=== PATIENT | female | born 1965 | race Caucasian/White ===

== ENCOUNTER → 2022-01-15 | Outpatient (CLI) | payer MEDICAID, SELFPAY ==
--- NOTE | 2022-01-15 13:02 | BI_ITS ---
MAMMOGRAPHY - BILATERAL SCREENING REASON FOR EXAM: Female, 56 years old. Routine annual screening examination. PERTINENT HISTORY: Non-contributory. TECHNIQUE: Digital bilateral breast valerio (3D mammographic acquisition) in the CC and MLO projections. 2-D mediolateral oblique (MLO) and craniocaudad (CC) views of both breasts were obtained. CAD: Full Field Digital Mammography with Computer Added Detection was performed. COMPARISON: None. Baseline examination. FINDINGS: Breast Composition: The breasts are almost entirely fatty. There are no dominant masses or suspicious calcifications. No other significant abnormalities are identified. BI/SCRN MAMM (CAD)W/VALERIO BILAT IMPRESSION: Negative screening mammogram. Yearly followup mammogram recommended. (A) ASSESSMENT CATEGORY: BIRADS Category 1: Negative. A letter regarding these results will be sent to the patient by the facility within 30 days. Approximately 10% of breast cancers are not detected by mammography. A normal mammogram should not delay biopsy of a clinically suspicious abnormality. [id number] Electronically Signed: Lux Henley MD at 13:53 EDT ,
== END | disposition home or self-care (01) ==
LOC: OPBI 13:01
PROVIDERS: PCP Internal Medicine; Visit Provider Internal Medicine
DX: Z12.31 Encounter for screening mammogram for malignant neoplasm of breast (principal)
CPT/HCPCS: 77063; 77067

== ENCOUNTER → 2022-06-24 | Outpatient (CLI) | payer MEDICAID, SELFPAY ==
[2022-06-24 12:04] LABS: Absolute Lymphocyte Count 2.45 X10^3/uL (0.83-4.51); Absolute Neutrophil Count 2.5 X10^3/uL (2.0-7.7); Basophil# 0.05 X10^3/uL; Basophil% 0.9 % (0-1); Eosinophils% 5.1 % (0-5); Hematocrit 44.9 % (37-47); Hemoglobin 14.3 g/dL (12.0-15.0); Lymphocyte # 2.45 X10^3/ul (0.83-4.51); Lymphocyte % 41.8 % (19-41); Mean Corp Hgb Conc 31.8 g/dL (32-36); Mean Corpuscular Hgb 29.3 pg (27.0-32.0); Mean Platelet Vol. 11.8 fl (6.2-12.0); Monocyte# 0.55 X10^3/uL; Monocyte% 9.4 % (0-10); NRBC Flagged by Analyzer 0 % (0-5); Neutrophil % 42.6 % (47-70); Platelet Count 229 K/mm3 (150-450); RBC Distribution Width CV 13.4 % (11.6-14.6); RBC Distribution Width SD 45.6 fl (35.1-43.9); Red Blood Count 4.88 M/mm3 (4.2-5.4); White Blood Count 5.9 K/mm3 (4.4-11.0)
[2022-06-24 12:27] LABS: AST(SGOT) 20 U/L (15-37); Alanine Aminotransfer ALT/SGPT 33 U/L (13-56); Albumin, Serum 3.9 g/dL (3.2-5.0); Alkaline Phosphatase 52 U/L (45-117); Anion Gap 6 (5-15); BUN 16 mg/dL (7-18); BUN/Creat Ratio 17.5 RATIO (10-20); Calcium,Total 9.7 mg/dL (8.5-10.1); Chloride 100 mmol/L (98-107); Cholesterol 188 mg/dL (200); Creatinine, Serum 0.91 mg/dL (0.55-1.02); EST Glomerular Filtration Rate 67 mL/min (>60); Est Glom Filt Rate - Afr Amer 82 mL/min (>60); Globulin 4.1 g/dL (2.2-4.2); Glucose 100 mg/dL (74-106); High Density Lipoprotein 64 mg/dL; Potassium 3.7 mmol/L (3.5-5.1); Sodium Level 138 mmol/L (136-145); Triglycerides 123 mg/dL; Very Low Density Lipoprotein 25 mg/dL (5-40)
== END | disposition home or self-care (01) ==
LOC: BIMLAB 08:24
PROVIDERS: PCP Internal Medicine; Referring Provider Internal Medicine; Visit Provider Internal Medicine
DX: I10 Essential (primary) hypertension (principal); E78.2 Mixed hyperlipidemia
CPT/HCPCS: 36415; 80053; 80061; 85025

== ENCOUNTER → 2023-07-01 | Outpatient (CLI) | payer MEDICAID, SELFPAY ==
[2023-07-01 12:30] LABS: Absolute Lymphocyte Count 2.52 X10^3/uL (0.83-4.51); Absolute Neutrophil Count 2.8 X10^3/uL (2.0-7.7); Basophil# 0.07 X10^3/uL; Basophil% 1.1 % (0-1); Eosinophil# 0.46 X10^3/uL; Eosinophils% 7.3 % (0-5); Hematocrit 43.3 % (37-47); Lymphocyte # 2.52 X10^3/ul (0.83-4.51); Lymphocyte % 40.1 % (19-41); Mean Corp Hgb Conc 32.3 g/dL (32-36); Mean Corpuscular Hgb 29.1 pg (27.0-32.0); Mean Platelet Vol. 12.4 fl (6.2-12.0); Monocyte# 0.42 X10^3/uL; Monocyte% 6.7 % (0-10); NRBC Flagged by Analyzer 0 % (0-5); Neutrophil # 2.81 X10^3/uL (2.7-7.7); Neutrophil % 44.6 % (47-70); Platelet Count 202 K/mm3 (150-450); Red Blood Count 4.81 M/mm3 (4.2-5.4); White Blood Count 6.3 K/mm3 (4.4-11.0)
[2023-07-01 12:57] LABS: AST(SGOT) 22 U/L (15-37); Alanine Aminotransfer ALT/SGPT 29 U/L (13-56); Albumin, Serum 3.9 g/dL (3.2-5.0); Alkaline Phosphatase 50 U/L (45-117); Anion Gap 8 (5-15); BUN 18 mg/dL (7-18); BUN/Creat Ratio 20.6 RATIO (10-20); Calcium,Total 9.3 mg/dL (8.5-10.1); Chloride 105 mmol/L (98-107); Cholesterol 194 mg/dL (200); Creatinine, Serum 0.87 mg/dL (0.55-1.02); EST Glomerular Filtration Rate 71 mL/min (>60); Est Glom Filt Rate - Afr Amer 85 mL/min (>60); Glucose 116 mg/dL (74-106); High Density Lipoprotein 51 mg/dL; Potassium 3.3 mmol/L (3.5-5.1); Protein, Total 7.9 g/dL (6.4-8.2); Sodium Level 139 mmol/L (136-145); Triglycerides 164 mg/dL; Very Low Density Lipoprotein 33 mg/dL (5-40)
== END | disposition home or self-care (01) ==
LOC: BIMLAB 08:15
PROVIDERS: PCP Internal Medicine; Referring Provider Internal Medicine; Visit Provider Internal Medicine
DX: I10 Essential (primary) hypertension (principal); E78.2 Mixed hyperlipidemia
CPT/HCPCS: 36415; 80053; 80061; 85025

== ENCOUNTER → 2023-07-29 | Outpatient (CLI) | payer MEDICAID, SELFPAY ==
--- NOTE | 2023-07-29 08:51 | BI_ITS ---
MAMMOGRAPHY - BILATERAL SCREENING REASON FOR EXAM: Female, 57 years old. Routine annual screening examination. PERTINENT HISTORY: Aunt with breast cancer. TECHNIQUE: Digital bilateral breast valerio (3D mammographic acquisition) in the CC and MLO projections. 2-D mediolateral oblique (MLO) and craniocaudad (CC) views of both breasts were obtained. CAD: Full Field Digital Mammography with Computer Added Detection was performed. COMPARISON: Comparison is made with prior study January 15, 2022. FINDINGS: Breast Composition: The breasts are almost entirely fatty. There are no dominant masses or suspicious calcifications. No other significant abnormalities are identified. There has been no significant change since the prior study. BI/SCRN MAMM (CAD)W/VALERIO BILAT IMPRESSION: Stable bilateral screening mammogram. Yearly follow-up mammogram recommended. (A) ASSESSMENT CATEGORY: BIRADS Category 1: Negative. A letter regarding these results will be sent to the patient by the facility within 30 days. Approximately 10% of breast cancers are not detected by mammography. A normal mammogram should not delay biopsy of a clinically suspicious abnormality. [id number] Electronically Signed: Lux Henley MD at 10:16 EDT ,
== END | disposition home or self-care (01) ==
LOC: OPBI 08:51
PROVIDERS: PCP Internal Medicine; Referring Provider Internal Medicine; Visit Provider Internal Medicine
DX: Z12.31 Encounter for screening mammogram for malignant neoplasm of breast (principal); Z80.3 Family history of malignant neoplasm of breast
CPT/HCPCS: 77063; 77067

== ENCOUNTER 2024-05-03 08:45 | Day surgery (SDC) | payer MEDICAID, SELFPAY ==
[2024-05-03] VITALS (8 sets, daily range): BP systolic 100–139; BP diastolic 61–72; PULSE 58–70; RESP 16; TEMP 36.2–36.9; O2SAT 95–100; BMI 27.8
--- NOTE | 2024-05-03 | COLBX_PTH ---
PATIENT: LAURENCE GREENE LOC: EN U#:[id number] AGE/SX: 58/F ROOM: RE05/03/[address]: Dr. Sim Whitten MD : 1965 BED: DIS: 05/03/2024 SPEC #: [id number] RECD: 05/03/24 13:25 STATUS: HARDIK REChristiano #: [id number] NATALI: 05/03/24 00:[address]: Sim Whitten DEPT: SURGICAL PATHOLOGY RECD BY: Ignacio Corrales ENTERED: 05/03/24 13:25 SP TYPE: COLON BX OTHR DR: Dr. Juany Rangel MD Tissues: Sigmoid colon biopsy Procedures: Surgery Specimen Level IV HEADER OPERATION: Colonoscopy with biopsy PRE-OP DIAGNOSIS: Positive colorectal cancer screening using Cologuard test TISSUE SUBMITTED: Sigmoid polyp biopsy MICROSCOPIC DIAGNOSIS Sigmoid polyp, biopsy: Fragments of hyperplastic colonic polyp. PW.mr 05/04/2024 MICROSCOPIC DESCRIPTION Slides are reviewed. GROSS DESCRIPTION Received in fixative is one container labeled with the patient's name and designated Sigmoid polyp biopsy. The specimen consists of two irregular fragments of light torres soft tissue that in aggregate measure 0.6 x 0.3 x 0.2 cm. The specimen is totally submitted in one cassette. TELLY 05/03/2024 TC:5 CPT:83637
--- NOTE | 2024-05-03 09:11 | PCM.PRE.AN2 ---
ASA Classification* ASA Classification ASA Classification: 2 Assessment & Plan Anesthesia* Anesthesia Assessment Anesthesia Assessment: Discussed sedation and/or anesthesia options, risks, benefits, and alternatives with patient/parents/legal guardian/POA. Questions invited. The patient/parents/legal guardian/POA seems to understand and agrees to proceed with anesthesia plan. Reviewed the physical assessment, medical history, allergy history and patient home medications list prior to surgery/procedure/anesthetic and documented any changes. Performed airway and anesthesia risk assessments. Anesthesia Type Anesthesia Type: MAC History Source History Obtained from:: Patient and Chart Anesthesia Focused Assessment* Temperature: 97.2 F Pulse Rate: 70 Blood Pressure: 139/63 Respiratory Rate: 16 Pulse Ox: 100 Oxygen Delivery Method: Room Air Airway Assessment Mouth opens: >3 cm Mallampati Score: III Teeth Condition: Caps/Crowns (Patient has all permanent implants on top. They are all tight.) and Missing (There are several missing teeth on the bottom. The rest are tight.) Neck Range of motion (ROM): Full ROM Focused Labs Anesthesia Preop lab: CBC WBC 6.3 K/mm3 (4.4-11.0) 07/01/23 08:16 RBC 4.81 M/mm3 (4.2-5.4) 07/01/23 08:16 Hgb 14.0 g/dL (12.0-15.0) 07/01/23 08:16 Hct 43.3 % (37-47) 07/01/23 08:16 Plt Count 202 K/mm3 (150-450) 07/01/23 08:16 CHEMISTRY Potassium 3.3 mmol/L (3.5-5.1) L 07/01/23 08:16 Sodium 139 mmol/L (136-145) 07/01/23 08:16 BUN 18 mg/dL (7-18) 07/01/23 08:16 Creatinine 0.87 mg/dL (0.55-1.02) 07/01/23 08:16 Glucose 116 mg/dL (74-106) H 07/01/23 08:16 TSH 0.66 uIU/mL (0.358-3.74) 04/27/13 14:37 COAG Pre-Assessment Diagnosis/Proposed Procedure Planned Operative Procedure(s): COLONOSCOPY Anesthesia History 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 When Was Last Pacemaker Check QUESTION #4 FULL TEXT: You/Your Family Experience fever (hyperthermia) with Anesthesia Last Oral Intake Last Oral intake: Last Oral Intake NPO since 07:00 05/03/24 09:04 Meds taken in AM with sips of Yes 05/03/24 09:04 water? Meds patient instructed to HYDROCHLOROTHIAZIDE 05/03/24 09:04 take am of surgery Any additional information?: Yes NPO since: 07:00 (Patient took her hydrochlorothiazide at 7 AM with water) PONV PONV - lance crewmember/mlrs sergeant: PONV - lance crewmember/mlrs sergeant Female Yes 04/28/24 14:20 HX of Motion Sickness Yes 04/28/24 14:20 HX of N/V After Surgery Yes 04/28/24 14:20 Non-Smoker Yes 04/28/24 14:20 Duration of Surgery greater No 04/28/24 14:20 than 60 minutes Number of Risk Factors 4 04/28/24 14:20 PONV Score Severe Risk 04/28/24 14:20 Height & Weight Height & Weight: Anesthesia: Height & Weight Height 5 ft 4 in 05/03/24 09:04 Weight: 73.6 kg 05/03/24 09:04 Body Mass Index (BMI) 27.8 05/03/24 09:04 Respiratory Assessment Respiratory Assessment - lance crewmember/mlrs sergeant: Respiratory Tract Infection Hx - lance crewmember/mlrs sergeant Hx Respiratory Tract Infection No 04/28/24 14:20 STOP Sleep Apnea STOP Sleep Apnea - lance crewmember/mlrs sergeant: STOP Sleep Apnea - lance crewmember/mlrs sergeant Hx Hypertension Yes 04/28/24 14:20 Hx Sleep Apnea No 04/28/24 14:20 CPAP No 03/02/13 17:44 BIPAP No 03/02/13 17:44 Do you snore loudly (louder No 04/28/24 14:20 than talking or can be heard Do you often feel tired/ No 04/28/24 14:20 fatigued/ sleepy during daytime? Has anyone observed you stop No 04/28/24 14:20 breathing during sleep? STOP Results Negative 04/28/24 14:20 QUESTION #5 FULL TEXT : Do you snore loudly (louder than talking or can be heard through closed doors)? Tobacco Use History Tobacco Use History - lance crewmember/mlrs sergeant: Tobacco Use History - lance crewmember/mlrs sergeant Tobacco Use Smoking Status Former smoker 04/28/24 14:20 Hx Tobacco Use Yes 04/28/24 14:20 Years Smoking Packs Smoked per Day Smoking Cessation Date was Yes - quit smoking within 15 04/28/24 14:20 within the last 15 years years Hx Smoking Cessation Date Hx Smoking Cessation No 04/28/24 14:20 Counseling Hematologic Medial History Hematologic Hx - lance crewmember/mlrs sergeant: Hematologic Medical Hx - manager environmental health Hx of Blood Transfusion No 04/28/24 14:20 Hx of Transfusion in last 3 No 04/28/24 14:20 Months Date of Last Transfusion (if within last 3 months) Ever experience any problems No 04/28/24 14:20 with transfusion(s)? Specify any problems Hx of Preganancy in last 3 No 04/28/24 14:20 Months Nurse Filling Out Transfusion [email or web address] 04/28/24 14:20 & Questions: Date: 04/28/24 04/28/24 14:20 Time: 14:25 04/28/24 14:20 Patient unable to answer at this time (ie. confused, unrespo /Reproduction History /Reproductive History - lance crewmember/mlrs sergeant: /Reproductive Hx- lance crewmember/mlrs sergeant Hx Now Gestational Age (in weeks): EDC: Hx Hx Para [facility] Medical History Wears glasses Migraine headache Gastric reflux Former smoker Positive colorectal cancer screening using Cologuard test Trigger finger High cholesterol Hypertension Headache, migraine GI problem Chronic bronchitis Carpal tunnel syndrome Back problem Arthritis Diverticulitis large intestine COPD with asthma Home Medications ?Medication ?Instructions ?Recorded ?Last Taken ?Type antiarthritic combination no.2 900 1,800 mg PO DAILY 12/05/21 Unknown History mg tablet (glucosamine-chondroitin) loratadine 10 mg tablet 10 mg PO DAILY 12/05/21 Unknown History omega 3-ydb-hab-fish oil 60 mg-90 3 cap PO DAILY 12/05/21 Unknown History mg-500 mg capsule (Fish Oil) omeprazole 20 mg capsule,delayed 20 mg PO DAILY 12/05/21 Unknown History release tumeric curcumin 1 tab PO DAILY 12/05/21 Unknown History diclofenac sodium 50 mg 50 mg PO BID #180 tabs 03/02/24 Unknown Rx tablet,delayed release hydrochlorothiazide 25 mg tablet 25 mg PO DAILY #90 tabs 03/02/24 05/03/24 07:00 Rx simvastatin 20 mg tablet 20 mg PO DAILY #90 tabs 03/02/24 Unknown Rx Allergy/AdvReac Type Severity Reaction Status Date / Time ciprofloxacin Allergy Severe Hives Verified 05/03/24 09:02 oxycodone (From Percocet) Allergy Severe Nausea Verified 05/03/24 09:02 sulfamethoxazole (From Allergy Severe Hives Verified 05/03/24 09:02 Bactrim) trimethoprim (From Bactrim) Allergy Severe Hives Verified 05/03/24 09:02 ibuprofen Allergy Rash Verified 05/03/24 09:02 tetracycline (Tetracycline) Allergy Hives Verified 05/03/24 09:02 hydrocodone bitartrate (From AdvReac Upset Verified 05/03/24 09:02 Vicodin) Stomach Family History Father Cancer sinus cavity Hypertension Mother Diabetes Grandmother Diabetes Grandfather Diabetes Hypertension Brother Diabetes Surgical History S/P trigger finger release History of carpal tunnel release History of back surgery History of foot surgery Social History household members: spouse current occupational status: employed 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
--- NOTE | 2024-05-03 10:14 | HP.PCM_ITS ---
HPI - General General Date of Admission: 05/03/24 Date of Service: 05/03/24 Chief Complaint: Screening colonoscopy HPI Narrative LAURENCE GREENE, is a 58 F who presents today for colonoscopy. She states that her last colonoscopy was about 10 years ago. She recently had a positive Cologuard test. She denies any blood in her stools. No GI symptoms or problems otherwise. [facility] Medical History Wears glasses Migraine headache Gastric reflux Former smoker Positive colorectal cancer screening using Cologuard test Trigger finger High cholesterol Hypertension Headache, migraine GI problem Chronic bronchitis Carpal tunnel syndrome Back problem Arthritis Diverticulitis large intestine COPD with asthma Home Medications ?Medication ?Instructions ?Recorded ?Last Taken ?Type antiarthritic combination no.2 900 1,800 mg PO DAILY 12/05/21 Unknown History mg tablet (glucosamine-chondroitin) loratadine 10 mg tablet 10 mg PO DAILY 12/05/21 Unknown History omega 8-ryy-obz-fish oil 60 mg-90 3 cap PO DAILY 12/05/21 Unknown History mg-500 mg capsule (Fish Oil) omeprazole 20 mg capsule,delayed 20 mg PO DAILY 12/05/21 Unknown History release tumeric curcumin 1 tab PO DAILY 12/05/21 Unknown History diclofenac sodium 50 mg 50 mg PO BID #180 tabs 03/02/24 Unknown Rx tablet,delayed release hydrochlorothiazide 25 mg tablet 25 mg PO DAILY #90 tabs 03/02/24 05/03/24 07:00 Rx simvastatin 20 mg tablet 20 mg PO DAILY #90 tabs 03/02/24 Unknown Rx Allergy/AdvReac Type Severity Reaction Status Date / Time ciprofloxacin Allergy Severe Hives Verified 05/03/24 09:02 oxycodone (From Percocet) Allergy Severe Nausea Verified 05/03/24 09:02 sulfamethoxazole (From Allergy Severe Hives Verified 05/03/24 09:02 Bactrim) trimethoprim (From Bactrim) Allergy Severe Hives Verified 05/03/24 09:02 ibuprofen Allergy Rash Verified 05/03/24 09:02 tetracycline (Tetracycline) Allergy Hives Verified 05/03/24 09:02 hydrocodone bitartrate (From AdvReac Upset Verified 05/03/24 09:02 Vicodin) Stomach Family History Father Cancer sinus cavity Hypertension Mother Diabetes Grandmother Diabetes Grandfather Diabetes Hypertension Brother Diabetes Surgical History S/P trigger finger release History of carpal tunnel release History of back surgery History of foot surgery Social History household members: spouse current occupational status: employed current occupation: [employer] Smoking Status: Former smoker quit date: 12/12/16 pack-years: 59 Electronic Cigarette Use: not used alcohol intake: never substance use type: does not use what type of physical activity do you participate in: none do you feel safe at home: Yes ROS Constitutional Constitutional: Reports systems reviewed and no addt'l complaints, except as documented Eyes Eyes: Reports systems reviewed and no addt'l complaints, except as documented ENT HEENT: Reports systems reviewed and no addt'l complaints, except as documented Cardiovascular Cardiovascular: Reports systems reviewed and no addt'l complaints, except as documented Respiratory/Chest Respiratory/Chest: Reports systems reviewed and no addt'l complaints, except as documented Gastrointestinal Gastrointestinal: Reports systems reviewed and no addt'l complaints, except as documented Vital Signs Vital Signs Vital Signs: 05/03/24 09:04 05/03/24 09:04 05/03/24 09:19 Temperature 97.2 F L 97.2 F L Temperature Source Temporal Pulse Rate 70 70 Respiratory Rate 16 16 Respiratory Pattern Normal Blood Pressure 139/63 H 139/63 H Blood Pressure Mean 88 Blood Pressure Source Monitor Blood Pressure Position Sitting Blood Pressure Location Left Arm Pulse Ox 100 100 Oxygen Delivery Method Room Air Room Air Weight Weight: 162 lb 4.163 oz Body Mass Index (BMI) 27.8 Physical Exam Const alert, oriented x3, no apparent distress and average body habitus Assessment & Plan Assessment/Plan (1) Positive colorectal cancer screening using Cologuard test: PLAN: The patient is a 58-year-old female who recently had a positive Cologuard test. Her last colonoscopy was about 10 years ago. She denies any GI symptoms or problems. Plan is for her to proceed with colonoscopy. This will begin momentarily. We did discuss the risks benefits and alternatives. And she wished to proceed. Charges/Coding Visit Charges Inpatient E&M: 10234 Init Hosp L1
--- NOTE | 2024-05-03 10:55 | OP.CCLET_ITS ---
05/03/2024 Juany Rangel Md Re : Colonoscopy procedure for Winnie Trivedi Dear Claire This procedure was performed on Friday, May 03, 2024. My impressions and recommendations are as follows: Impressions : - Diverticulosis in the sigmoid colon. - One 2 mm polyp in the sigmoid colon, removed with a cold biopsy forceps. Resected and retrieved. - Internal hemorrhoids. - The examination was otherwise normal on direct and retroflexion views. Recommendations : - Discharge patient to home (ambulatory). - High fiber diet indefinitely. - Await pathology results. - Repeat colonoscopy in 5-10 years for surveillance based on pathology results. - Return to my office PRN. - Continue present medications. My findings are described in the full procedure note, which is enclosed. If I can be of further assistance, please feel free to contact me at . Sincerely, Sim Whitten MD 05/03/2024 10:54:21 AM This report has been signed electronically.
--- NOTE | 2024-05-03 10:55 | OP.COLON_ITS ---
Patient Name: Winnie Trivedi Procedure Date: 05/03/2024 10:15 AM Date of : 1965 Age: 58 Procedure: Colonoscopy Indications: Positive Cologuard test Providers: Sim Whitten MD Referring MD: Juany Rangel Md Medicines: Monitored Anesthesia Care Patient Profile: Refer to note in patient chart for documentation of history and physical. Last Colonoscopy: 10 years ago. Complications: No immediate complications. Estimated blood loss: Minimal. Procedure: Pre-Anesthesia Assessment: - Prior to the procedure, a History and Physical was performed, and patient medications and allergies were reviewed. The patient's tolerance of previous anesthesia was also reviewed. The risks and benefits of the procedure and the sedation options and risks were discussed with the patient. All questions were answered, and informed consent was obtained. Prior Anticoagulants: The patient has taken no anticoagulant or antiplatelet agents. ASA Grade Assessment: II - A patient with mild systemic disease. After reviewing the risks and benefits, the patient was deemed in satisfactory condition to undergo the procedure. After I obtained informed consent, the scope was passed under direct vision. Throughout the procedure, the patient's blood pressure, pulse, and oxygen saturations were monitored continuously. The colonoscope was introduced through the anus and advanced to the cecum, identified by appendiceal orifice and ileocecal valve. The ileocecal valve, appendiceal orifice, and rectum were photographed. The entire colon was well visualized. The colonoscopy was performed without difficulty. The patient tolerated the procedure well. The quality of the bowel preparation was adequate. Moderate Sedation: See the other procedure note for documentation of moderate sedation with intraservice time. Scope In: 10:27:12 AM Scope Withdrawal Time 0 hours 11 minutes 58 seconds Scope Out: 10:45:49 AM Total Procedure Duration Time 0 hours 18 minutes 37 seconds Findings: The perianal and digital rectal examinations were normal. A few small-mouthed diverticula were found in the sigmoid colon. A 2 mm polyp was found in the sigmoid colon. The polyp was hyperplastic. The polyp was removed with a cold biopsy forceps. Resection and retrieval were complete. Verification of patient identification for the specimen was done by the nurse. Estimated blood loss was minimal. Internal hemorrhoids were found during retroflexion. The hemorrhoids were large. The exam was otherwise without abnormality on direct and retroflexion views. Impression: - Diverticulosis in the sigmoid colon. - One 2 mm polyp in the sigmoid colon, removed with a cold biopsy forceps. Resected and retrieved. - Internal hemorrhoids. - The examination was otherwise normal on direct and retroflexion views. Recommendation: - Discharge patient to home (ambulatory). - High fiber diet indefinitely. - Await pathology results. - Repeat colonoscopy in 5-10 years for surveillance based on pathology results. - Return to my office PRN. - Continue present medications. Procedure Code(s): --- Professional --- 69059, Colonoscopy, flexible; with biopsy, single or multiple Diagnosis Code(s): --- Professional --- K64.8, Other hemorrhoids D12.5, Benign neoplasm of sigmoid colon K57.30, Diverticulosis of large intestine without perforation or abscess without bleeding R19.5, Other fecal abnormalities CPT copyright 2021 [employer]. All rights reserved. The codes documented in this report are preliminary and upon tooling specialist review may be revised to meet current compliance requirements. Sim Whitten MD 05/03/2024 10:54:21 AM This report has been signed electronically. Number of Addenda: 0 Note Initiated On: 05/03/2024 10:15 AM
--- NOTE | 2024-05-03 10:58 | PCM.POST.ANE ---
Anesthesia: Postop Eval I Current Vital Signs Temperature: 97.3 F Pulse Rate: 60 Blood Pressure: 101/65 Respiratory Rate: 16 Pulse Ox: 98 Oxygen Delivery Method: Room Air Assessment Airway patent: Yes Spontaneous unlabored respirations: Yes Mental status: Asleep nausea: No Vomiting: No Anesthesia Complication: No Fluid Hydration Crystalloid volume administer (ml): 50 Total IV fluid infused: 50 Progress Note Anesthesia document: Postop Eval 1 completed: Yes
--- NOTE | 2024-05-03 20:16 | PCM.POSTANE2 ---
Anesthesia Postop Eval I Sum Postop Eval Completion status Anesthesia document: Postop Eval 1 completed: Yes Anesthesia Postop Eval I Summary Anesthesia Postop Eval I Summary: Anesthesia Postop Eval I: Assessment Summary Airway patent Yes 05/03/24 10:59 [email or web address] Spontaneous unlabored Yes 05/03/24 10:59 [email or web address] respirations Mental status Asleep 05/03/24 10:59 [email or web address] nausea No 05/03/24 10:59 [email or web address] Vomiting No 05/03/24 10:59 [email or web address] Anesthesia Postop Eval I: Fluid Summary Crystalloid volume administer 50 05/03/24 10:59 [email or web address] (ml) Colloids volume administered ( ml) Blood Product volume administered (ml) Total IV fluid infused 50 05/03/24 10:59 [email or web address] Anesthesia Postop Eval I: Summary Notes Anesthesia Complication No 05/03/24 10:59 [email or web address] Anesthesia Complication Comment: Post-operative progress note Anesthesia: Postop Eval II Evaluation Mental status: Awake and Calm Pain Level: 0 nausea: No Vomiting: No Complications Anesthesia Complication: No
== END 2024-05-03 11:24 | disposition home or self-care (01) ==
LOC: EN 08:46 → AC 08:47
PROVIDERS: PCP Internal Medicine; Referring Provider Surgery; Visit Provider Surgery
PROC: 0DJD8ZZ Inspection of Lower Intestinal Tract, Via Natural or Artificial Opening Endoscopic (ICD-10-PCS; CPT 45378; principal; 2024-05-03 09:55)
DX: Z12.11 Encounter for screening for malignant neoplasm of colon (principal); J44.9 Chronic obstructive pulmonary disease, unspecified; K64.8 Other hemorrhoids; D12.5 Benign neoplasm of sigmoid colon; I10 Essential (primary) hypertension; E78.00 Pure hypercholesterolemia, unspecified; K57.30 Diverticulosis of large intestine without perforation or abscess without bleeding; K21.9 Gastro-esophageal reflux disease without esophagitis; Z87.891 Personal history of nicotine dependence; R19.5 Other fecal abnormalities
CPT/HCPCS: 45380; 88305; A4216; J2405

== ENCOUNTER → 2024-09-28 | Outpatient (CLI) | payer MEDICAID, SELFPAY ==
[2024-09-28 12:37] LABS: Absolute Lymphocyte Count 2.59 X10^3/uL (0.83-4.51); Absolute Neutrophil Count 2.9 X10^3/uL (2.0-7.7); Basophil# 0.05 X10^3/uL; Basophil% 0.8 % (0-1); Eosinophil# 0.54 X10^3/uL; Eosinophils% 8.3 % (0-5); Hematocrit 44.4 % (37-47); Hemoglobin 14.6 g/dL (12.0-15.0); Lymphocyte # 2.59 X10^3/ul (0.83-4.51); Lymphocyte % 39.7 % (19-41); Mean Corp Hgb Conc 32.9 g/dL (32-36); Mean Corpuscular Hgb 29.7 pg (27.0-32.0); Mean Corpuscular Volume 90.2 fL (81-99); Mean Platelet Vol. 12.3 fl (6.2-12.0); Monocyte# 0.47 X10^3/uL; Monocyte% 7.2 % (0-10); NRBC Flagged by Analyzer 0 % (0-5); Neutrophil # 2.87 X10^3/uL (2.7-7.7); Neutrophil % 43.8 % (47-70); Platelet Count 209 K/mm3 (150-450); RBC Distribution Width CV 13.4 % (11.6-14.6); RBC Distribution Width SD 44.3 fl (35.1-43.9); Red Blood Count 4.92 M/mm3 (4.2-5.4); White Blood Count 6.5 K/mm3 (4.4-11.0)
[2024-09-28 13:05] LABS: ALB/GLOB Ratio 1.5 RATIO (0.9-2.4); AST(SGOT) 25 U/L (<=31); Alanine Aminotransfer ALT/SGPT 23 U/L (<=34); Albumin, Serum 4.7 g/dL (3.4-4.8); Alkaline Phosphatase 69 U/L (35-104); Anion Gap 13 (5-15); BUN 18 mg/dL (4-19); BUN/Creat Ratio 21.8 RATIO (10-20); Calcium,Total 10.1 mg/dL (7.6-11.0); Chloride 102 mmol/L (98-108); Cholesterol 164 mg/dL (<=200); Creatinine, Serum 0.84 mg/dL (0.70-1.20); EST Glomerular Filtration Rate 80 (>60); Globulin 3.2 g/dL (2.2-4.2); Glucose 99 mg/dL (70-99); High Density Lipoprotein 53 mg/dL; Low Density Lipoprotein Calc. 89 mg/dL; Potassium 3.8 mmol/L (3.3-5.1); Protein, Total 7.9 g/dL (5.9-8.4); Sodium Level 142 mmol/L (133-145); Total Bilirubin 0.37 mg/dL (0.00-1.30); Triglycerides 111 mg/dL; Very Low Density Lipoprotein 22 mg/dL (5-40); cholesterol:hdl ratio screen 3.09
== END | disposition home or self-care (01) ==
LOC: BIMLAB 10:43
PROVIDERS: PCP Internal Medicine; Referring Provider Internal Medicine; Visit Provider Internal Medicine
DX: I10 Essential (primary) hypertension (principal); E78.2 Mixed hyperlipidemia; K21.9 Gastro-esophageal reflux disease without esophagitis
CPT/HCPCS: 36415; 80053; 80061; 85025